=== PATIENT | female | born 1935 ===

== ENCOUNTER 2016-10-12 10:56 | Inpatient (IN) | payer MEDICARE, OTHER ==
[2016-10-12 11:09] VITALS: BMI 21.4
[2016-10-12 11:31] VITALS: O2SAT 99
[2016-10-12 12:29] LABS: BASO # 0.1 K/uL (0.0-0.2); BASO % 1.1 % (0.0-2.0); EOS % 0.3 % (0.0-4.0); HEMATOCRIT 35.2 % (34.0-47.0); LYMPH # 1.3 K/uL (1.0-4.3); LYMPH % 22.2 % (20.0-40.0); MEAN CELL VOLUME 97.1 fl (81.0-99.0); MEAN CORPUSCULAR HEMOGLOBIN 32.5 pg (27.0-31.0); MEAN CORPUSCULAR HGB CONC 33.5 g/dL (33.0-37.0); MEAN PLATELET VOLUME 8.3 fl (7.2-11.7); MONO # 0.4 K/uL (0.0-0.8); MONO % 6.8 % (0.0-10.0); NEUT # 4.2 K/uL (1.8-7.0); NEUT % 69.6 % (50.0-75.0); RED CELL DISTRIBUTION WIDTH 13.9 % (11.5-14.5)
[2016-10-12 12:40] LABS: ALB/GLOB RATIO 1.4 (1.0-2.1); ALCOHOL SERUM < 10 mg/dl (0-10); ALKALINE PHOSPHATASE 92 U/L (38-126); ALT/SGPT 22 U/L (9-52); AST/SGOT 21 U/L (14-36); BILIRUBIN,TOTAL 0.6 mg/dl (0.2-1.3); BLOOD UREA NITROGEN 18 mg/dl (7-17); CALCIUM 9.4 mg/dL (8.4-10.2); CARBON DIOXIDE 24 mmol/L (22-30); CHLORIDE 108 mmol/L (98-107); GFR AFRICAN-AMERICAN > 60; GLUCOSE,RANDOM 128 mg/dL (65-105); POTASSIUM 3.6 MMOL/L (3.6-5.0); SODIUM 144 mmol/l (132-148); TOTAL PROTEIN 7.1 G/DL (6.3-8.2)
--- NOTE | 2016-10-12 12:40 | ED PDOC ---
HPI: General Adult Time Seen by Provider: 10/12/16 11:04 Chief Complaint (Nursing): Altered Mental Status History Per: Patient Additional Complaint(s): Pt. brought in by EMS. As per pt.'s public guardian, Sharon, today she attempted to go into pt.'s home to check on her but pt. became very combative therefore mobile crisis was called. As per Sharon this behavior is consistent with her previous visits. Pt. is very defensive but does answer questions appropriately. Offers no complaints. States she is upset that she has to be in the hospital and she does not understand why she has to be here and why people have to go into her house. Past Medical History Reviewed: Historical Data, Nursing Documentation, Vital Signs Vital Signs: Last Vital Signs Temp 98 F 10/12/16 11:30 Pulse 75 10/12/16 11:30 Resp 20 10/12/16 11:30 BP 145/75 10/12/16 11:30 Pulse Ox 99 10/12/16 15:37 - Medical History PMH: Denies: Chronic Kidney Disease - Family History Family History: States: No Known Family Hx - Living Arrangements Living Arrangements: Alone - Home Medications Home Medications: Ambulatory Orders Medication Instructions Recorded No Known Home Med 10/12/16 - Allergies Allergies/Adverse Reactions: Allergies Allergy/AdvReac Type Severity Reaction Status Date / Time No Known Allergies Allergy Verified 10/12/16 11:51 Review of Systems ROS Statement: Except As Marked, All Systems Reviewed And Found Negative Physical Exam - Reviewed Nursing Documentation Reviewed: Yes Vital Signs Reviewed: Yes - Physical Exam Appears: Positive for: Well, Non-toxic, No Acute Distress Head Exam: Positive for: ATRAUMATIC, NORMAL INSPECTION, NORMOCEPHALIC Skin: Positive for: Normal Color, Warm, DRY Eye Exam: Positive for: EOMI, Normal appearance, PERRL ENT: Positive for: Normal ENT Inspection Neck: Positive for: Normal, Painless ROM Cardiovascular/Chest: Positive for: Regular Rate, Rhythm Respiratory: Positive for: CNT, Normal Breath Sounds Gastrointestinal/Abdominal: Positive for: Normal Exam, Bowel Sounds, Soft Back: Positive for: Normal Inspection Extremity: Positive for: Normal ROM Neurologic/Psych: Positive for: Alert, Oriented, Mood/Affect (seems agitated but is easily consolable), Gait (steady, unassisted). Negative for: Aphasia, Facial Droop - Laboratory Results Result Diagrams: 10/12/16 12:20 10/12/16 12:20 - ECG ECG: Positive for: Interpreted By Me ECG Rhythm: Positive for: Sinus Rhythm. Negative for: ST/T Changes Rate: 87 O2 Sat by Pulse Oximetry: 99 ED OBSERVATION Discharge: Yes Date of observation admission: 10/12/16 Time of observation admission: 11:53 - Observation admission statement Patient is being placed in observation because:: crisis eval - Progress Note Progress Note: 10/12/16 13:32 Pt. evaluated by Norma electric utility lineworker, who spoke with Dr. Logan and pt's guardian (Sharon) and arrangements made for admission. 10/12/16 15:32 Pt. is very pleasant and agreeable to plan. CT head w/o contrast: Age-related neuro degenerative changes are identified without acute intracranial findings as discussed above. 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 Follow-up MRI or CT may be performed if clinically warranted. CXR: NAD Disposition - Clinical Impression Clinical Impression: Major neurocognitive disorder - Patient ED Disposition Is Patient to be Admitted: Yes - Disposition Disposition Time: 15:37 Condition: STABLE
--- NOTE | 2016-10-12 13:17 | CT ---
PROCEDURE: CT HEAD WITHOUT CONTRAST. HISTORY: AMS COMPARISON: None available. TECHNIQUE: Axial computed tomography images were obtained through the head/brain without intravenous contrast. Radiation dose: Total exam DLP = 824 mGy-cm. This CT exam was performed using one or more of the following dose reduction techniques: Automated exposure control, adjustment of the mA and/or kV according to patient size, and/or use of iterative reconstruction technique. FINDINGS: HEMORRHAGE: No intracranial hemorrhage. BRAIN: There are probable bilateral external capsule chronic lacune or infarcts identified. Diffuse cerebral atrophy chronic microangiopathy appear mild, manifest by expanded ventricular sulcal and cisternal spaces and periventricular/centrum semiovale and subcortical white matter lucency. No mass effects identified and there is no extra-axial fluid collection appreciated. Midline brain and appears diffusely unremarkable including the craniocervical junction and corpus callosum. VENTRICLES: Unremarkable. No hydrocephalus. CALVARIUM: Unremarkable. PARANASAL SINUSES: Unremarkable as visualized. No significant inflammatory changes. MASTOID AIR CELLS: Unremarkable as visualized. No inflammatory changes. OTHER FINDINGS: None. IMPRESSION: Age-related neuro degenerative changes are identified without acute intracranial findings as discussed above. 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 Follow-up MRI or CT may be performed if clinically warranted.
[2016-10-12 15:16] LABS: URINE BILIRUBIN NEGATIVE (NEGATIVE); URINE BLOOD SMALL (NEGATIVE); URINE COLOR YELLOW (YELLOW); URINE GLUCOSE (UA) NEG (Normal); URINE KETONE NEGATIVE (NEGATIVE); URINE LEUKOCYTE ESTERASE NEG Leu/uL (Negative); URINE PROTEIN NEGATIVE (NEGATIVE); URINE UROBILINOGEN 0.2-1.0 mg/dL (0.2-1.0); WBC URINE 1 /hpf (0-5)
[2016-10-12 15:17] LABS: RBC URINE 8 /hpf (0-3)
--- NOTE | 2016-10-12 16:53 | RAD ---
HISTORY: clearance COMPARISON: No prior. FINDINGS: LUNGS: No active pulmonary disease. PLEURA: No significant pleural effusion identified, no pneumothorax apparent. CARDIOVASCULAR: Cardiac silhouette appears somewhat prominent which may be a function of technical magnification although intrinsic cardiomegaly is not excluded. Clinically correlate further. No pulmonary vascular derangement identified. OSSEOUS STRUCTURES: No significant abnormalities. VISUALIZED UPPER ABDOMEN: Surgical clips in the right upper quadrant suggest prior cholecystectomy. Clinically correlate. OTHER FINDINGS: None. IMPRESSION: No acute infiltrate or pleural effusion. Prominent cardiac silhouette. No pulmonary vascular derangement.
--- NOTE | 2016-10-12 21:32 | CARD ---
APPROVED REPORT EKG Measurement Heart [id number] <Conclusion> Normal sinus rhythm Minimal voltage criteria for LVH, may be normal variant Septal infarct, age undetermined Abnormal ECG
[2016-10-13] MEDS ORDERED: Magnesium Hydroxide Susp 30 ml UD PO PRN (00:16)
[2016-10-13] MEDS ORDERED: Bismuth Subsalicylate 262 mg/15 ml Sus (240 ml) PO PRN (00:16)
[2016-10-13] MEDS ORDERED: Alum-Mag Hydrox-Simethicone Susp (30 mL) PO PRN (00:16)
--- NOTE | 2016-10-13 03:09 | PCM.BM ---
<Christina Barrientos - Last Filed: 10/13/16 03:07> Treatment Plan Problems - Problems identified on initial assessmt altered thought process Date Initiated: 10/13/16 Time Initiated: 03:08 Assessment reference: NA Status: Active Treatment assets and liabiliti Patient Assests: other Patient Liabilities: live alone, physical pain, medical problems, imparied memory - Milieu Protocol Maintain good personal hygiene: daily Encourage regular showers, daily Remind patient to perform daily oral care, daily Assist patient to perform ADL's Maintain personal safety: every shift Educate patient to report safety concerns to staff, every shift Monitor environment for contraband/sharps Medication safety: Monitor for expected outcome, potential side effects: every shift, Assess barriers to learning: every shift, Assess readiness for medication education: every shift <Lilly Aguilera - Last Filed: 10/13/16 11:36> - Diagnosis (1) Dementia with behavioral disturbance Status: Acute Interventions: Medication management, Individual and group therapy, Psychoeducation, Disposition planning with legal guardian 10/13/16 11:36 <Kelly Mata - Last Filed: 10/15/16 10:17> Family Contact Family involvement: Family/SO is involved - Outside Agency Office of the Public Guardian, [facility] involvment: Following patient during stay, Information-sharing Agency contact name: [employer] TechnicianSharon Agency contact number: [phone] Discharge/Continuing Care - Education Needs Education Needs: Family Medication, Family Diagnosis/Disease Process, Family Coping Skills, Family Placement options, Family Community resources, Family Activities of Daily Living, Family Uses of Medical Equipment, Family Health Practices/Safety, Family Personal Hygiene/Grooming, Family Aftercare Safety Plan , Patient Medication, Patient Diagnosis/Disease Process, Patient Coping Skills, Patient Placement options, Patient Community resources, Patient Activities of Daily Living, Patient Uses of Medical Equipment, Patient Health Practices/Safety , Patient Personal Hygiene/Grooming, Patient Aftercare Safety Plan - Discharge Discharge Criteria: Tolerates medication w/o severe side effects, Free of paranoid thoughts, Free of agitation, Normal sleep pattern, Reduction of target symptoms Discharge to:: [facility] - Additional Comments 10/15/16 10:15 Pt's progress and bx discussed in team . Pt's medications reviewed. Pt's medical and social issues discussed. Pt currently on a 1:1 for safety precautions and wandering bxs'. Pt remains confused and disoriented. - Treatment Team Participation Discussed with Family/SO: Yes (Tx plan discussed wt [facility] renal case manager, Sharon Lin via telephone) Was Patient/Family/SO present at Treatment Team Meeting: No
[2016-10-13 08:00] LABS: ALB/GLOB RATIO 1.2 (1.0-2.1); ALKALINE PHOSPHATASE 93 U/L (38-126); ALT/SGPT 21 U/L (9-52); AST/SGOT 26 U/L (14-36); BILIRUBIN,TOTAL 0.8 mg/dl (0.2-1.3); BLOOD UREA NITROGEN 11 mg/dl (7-17); CALCIUM 9.2 mg/dL (8.4-10.2); CARBON DIOXIDE 24 mmol/L (22-30); CHLORIDE 107 mmol/L (98-107); CHOLESTEROL 237 mg/dL (0-199); GFR AFRICAN-AMERICAN > 60; GLUCOSE,RANDOM 74 mg/dL (65-105); POTASSIUM 3.7 MMOL/L (3.6-5.0); SODIUM 141 mmol/l (132-148); TOTAL PROTEIN 6.9 G/DL (6.3-8.2)
[2016-10-13 08:29] LABS: THYROID STIMULATING HORMONE 2.64 mIU/ML (0.46-4.68)
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
--- NOTE | 2016-10-13 12:04 | CP.PCM.CON ---
History of Present Illness - History of Present Illness History of Present Illness: Reason for Consult: per hospital protocol HPI 81 year female with state appointed guardian is admitted to [facility] for possible dementia. Patient is often found wandering the streets. Unknown past medical history, no known meds. ROS: per HPI, 12 systems reviewed and negative PMH: denies PSH: denies FH: denies SH: denies tobacco, ETOH, IVDU Meds: as below Allergies: NKDA Vitals: reviewed and currently stable Exam: GEN: WDWN, alert, cooperative HEENT: NCAT, PERRL, EOMI NECK: supple, no JVD, no lymphadenopathy CARDIAC: +S1S2 RRR LUNG: CTAB No WRR ABD: SOFT NT ND BSX4 NO MASSES NO HSM EXT: +pedal pulses, equal strength NEURO: AAOx2 SKIN warm, dry PSYCH normal mood, normal affect Labs: 10/12/16 12:20 10/13/16 07:22 Assessment and Plan: 81 year female with state appointed guardian is admitted to [facility] for possible dementia. Patient is often found wandering the streets. Unknown past medical history, no known meds. Psychiatric Issue management per psychiatry team Past Patient History - Past Social History Smoking Status: Never Smoked - CARDIAC Hx Cardiac Disorders: No Hx Hypertension: No - PULMONARY Hx Tuberculosis: No - NEUROLOGICAL HX Cerebrovascular Accident: No Hx Dementia: Yes Hx Seizures: No - HEENT Hx HEENT Problems: No - RENAL Hx Chronic Kidney Disease: No - ENDOCRINE/METABOLIC Hx Endocrine Disorders: No - HEMATOLOGICAL/ONCOLOGICAL Hx Cancer: No Hx Human Immunodeficiency Virus (HIV): No - INTEGUMENTARY Hx Dermatological Problems: No - MUSCULOSKELETAL/RHEUMATOLOGICAL Hx Falls: No Hx Unsteady Gait: Yes - GASTROINTESTINAL Hx Gastrointestinal Disorders: No - GENITOURINARY/GYNECOLOGICAL Hx Sexually Transmitted Disorders: No - PSYCHIATRIC Hx Substance Use: No - SURGICAL HISTORY Hx Surgeries: Yes Hx Joint Replacement: Yes (right hip) - ANESTHESIA Hx Anesthesia: No Meds Allergies/Adverse Reactions: Allergies Allergy/AdvReac Type Severity Reaction Status Date / Time No Known Allergies Allergy Verified 10/12/16 11:51 - Medications Medications: Current Medications Acetaminophen (Tylenol 325mg Tab) 650 mg PO Q4 PRN PRN Reason: Pain, moderate (4-7) Al Hydrox/Mg Hydrox/Simethicone (Maalox Plus 30 Ml) 30 ml PO Q4 PRN PRN Reason: Dyspepsia Bismuth Subsalicylate (Pepto-Bismol) 524 mg PO Q4 PRN PRN Reason: Diarrhea Lorazepam (Ativan) 0.5 mg PO HS PRN PRN Reason: Insomnia Stop: 10/27/16 00:17 Lorazepam (Ativan) 0.5 mg PO Q6 PRN PRN Reason: Anixety/Agitation Stop: 10/27/16 00:17 Magnesium Hydroxide (Milk Of Magnesia) 30 ml PO HS PRN PRN Reason: Constipation Risperidone (Risperdal Tab) 0.5 mg PO DAILY@1700 GODFREY Results - Vital Signs Recent Vital Signs: Last Vital Signs Temp 98.1 F 10/13/16 05:50 Pulse 78 10/13/16 05:50 Resp 19 10/13/16 05:50 BP 155/60 H 10/13/16 05:50 Pulse Ox 99 10/12/16 15:43 - Labs Result Diagrams: 10/12/16 12:20 10/13/16 07:22 Labs: Laboratory Results - last 24 hr 10/13/16 10/13/16 10/13/16 07:22 07:22 07:22 Sodium 141 Potassium 3.7 Chloride 107 Carbon Dioxide 24 Anion Gap 14 BUN 11 Creatinine 0.6 L Est GFR ( Amer) > 60 Est GFR (Non-Af Amer) > 60 Random Glucose 74 Hemoglobin A1c 5.4 Calcium 9.2 Ferritin 112.0 Total Bilirubin 0.8 AST 26 ALT 21 Alkaline Phosphatase 93 Total Protein 6.9 Albumin 3.8 Globulin 3.1 Albumin/Globulin Ratio 1.2 Triglycerides 108 Cholesterol 237 H LDL Cholesterol Direct 166 H HDL Cholesterol 45 Vitamin B12 < 159 L Free T4 1.00 Thyroxine (T4) 10.0 TSH 3rd Generation 2.64
[2016-10-13 12:37] LABS: FOLATE 13.9 ng/mL
[2016-10-13] MEDS ORDERED: Pneumococcal 23-Valent Vaccine IM ONE (13:55)
[2016-10-13] MEDS ORDERED: Divalproex 125 mg DR (BID formulation) PO SCH (17:00)
--- NOTE | 2016-10-14 20:17 | PCM.PYCHPN ---
Psychiatric Progress Note - Psychiatric Progress Note Patient seen today, length of contact: chart reviewed case discussed with team Patient Chief Complaint: confusion, get up unassisted/risk for falls /attempting to elope/aggressive/ behavior changes Problems Identified/Issues Discussed: alteration in cognition alteration in self care alteration in safety alteration in b12 levels Medical Problems: per chart decreased b12 levels, urine was slight cloudy/rbc 8 Diagnostic Results: per psychiatry per medicine per nursing per social work DSM 5 Symptoms Update: alteration in cognition, behavior changes, elopement risk, requires total care Medication Change: Yes (start mvi one tab day, b12 1000mcg per day) Medical Record Reviewed: Yes Consults ordered or reviewed: pt being followed by hospitalist, will have nutrition re consult pt Mental Status Examination - Cognitive Function Orientation: Person, Place ("Hospital") Attention: Poor Concentration: Poor Association: Loose Fund of Knowledge: Poor Decription of patient's judgement and insights: poor - Mood Mood: Neutral - Affect Affect: Constricted (Irritable) - Speech Speech: Soft - Language Additional comments: speaks armenian - Formal Thought Process Formal Thought Process: Paranoia, Loosening of associations Psychotic Thoughts and Behaviors: ?paranoia/staff - Homicidal Ideation Homicidal Ideation: No Goal/Treatment Plan - Goal/Treatment Plan Need for Continued Stay: Remain at risks for inpatient hospitalization, Discharge may exacerbated symptoms, Failed transitioning, Severe functional impairment Progress Toward Problem(s) and Goals/Treatment Plan: inpt/milieu adjust meds per status continue 1 to 1 for safety start one tab mvi daily with b12 1000mcg per day/tab po reconsult nutrition repeat urinalysis-pt with partial cloudy urine ?uti-?changes in mentation pt requires total care-team has been in contact (per note) with legal guardian who has given permission to adjust meds (psych/medicine ) as necessary discharge planning in progress
--- NOTE | 2016-10-15 08:38 | PCM.PYCHPN ---
Psychiatric Progress Note - Psychiatric Progress Note Patient seen today, length of contact: Patient evaluated, case discussed with team, chart reviewed, 35 min Patient Chief Complaint: "I'm okay" Problems Identified/Issues Discussed: Patient continues to be disoriented to situation/time. She knows she is in a hospital. Yesterday she has periods of agitation. She continues to seem to be paranoid at times. She has been observed to be eating well. Medication Change: Yes (Increase Risperdal to 0.5 mg PO BID) Medical Record Reviewed: Yes Mental Status Examination - Cognitive Function Orientation: Person, Place ("Hospital") Memory: Impaired Attention: Poor Concentration: Poor Association: Loose Fund of Knowledge: Poor Decription of patient's judgement and insights: Chronic poor I/J due to cognitive impairment - Mood Mood: Neutral - Affect Affect: Constricted (Irritable) - Speech Speech: Soft - Formal Thought Process Formal Thought Process: Paranoia, Loosening of associations Psychotic Thoughts and Behaviors: +Paranoia - Suicidal Ideation Suicidal Ideation: No - Homicidal Ideation Homicidal Ideation: No Goal/Treatment Plan - Goal/Treatment Plan Need for Continued Stay: Remain at risks for inpatient hospitalization, Discharge may exacerbated symptoms, Failed transitioning, Severe functional impairment Progress Toward Problem(s) and Goals/Treatment Plan: Dementia w/ behavioral disturbance, Psychosis unspecified; patient is in need of continued hospitalization for treatment and safety -Case discussed w/ legal guardian, Sharon Lin -Medicine consult appreciated -Increase Risperdal M-tab to 0.5 mg PO BID -Individual and group therapy -Dietary consult- patient likely has had poor nutrition/ ability to care for self prior to admission -1:1 for safety -Disposition planning Estimated Date of D/C: 10/23/16 - Smoking Cessation Smoking Cessation Initiated: No Reason for not providing: Not indicated
[2016-10-15 08:45] LABS: RBC URINE 2 /hpf (0-3); URINE BACTERIA RARE (<OCC); URINE BILIRUBIN NEGATIVE (NEGATIVE); URINE BLOOD NEGATIVE (NEGATIVE); URINE COLOR YELLOW (YELLOW); URINE GLUCOSE (UA) NEG (Normal); URINE KETONE NEGATIVE (NEGATIVE); URINE LEUKOCYTE ESTERASE NEG Leu/uL (Negative); URINE PROTEIN NEGATIVE (NEGATIVE); URINE UROBILINOGEN 0.2-1.0 mg/dL (0.2-1.0); WBC URINE 2 /hpf (0-5)
[2016-10-15] MEDS: Multivitamin With Minerals Tab PO SCH (09:30)
[2016-10-15] MEDS: Risperidone M tab 0.5MG PO SCH ×2 (11:32→16:23)
[2016-10-16] MEDS: Multivitamin With Minerals Tab PO SCH ×2 (08:25→08:26)
[2016-10-16] MEDS: Risperidone M tab 0.5MG PO SCH ×2 (08:25→17:15)
--- NOTE | 2016-10-16 09:22 | PCM.PYCHPN ---
Psychiatric Progress Note - Psychiatric Progress Note Patient seen today, length of contact: Patient evaluated, case discussed with team, chart reviewed, 35 min Patient Chief Complaint: "I'm okay" Problems Identified/Issues Discussed: Patient has been calm and cooperative. She continues to be guarded and suspicious and will not give any information about her personal life. Patient continues to be disoriented to situation/time. She knows she is in a hospital. She has been eating well. Medication Change: No Medical Record Reviewed: Yes Mental Status Examination - Cognitive Function Orientation: Person, Place ("Hospital") Memory: Impaired Attention: Poor Concentration: Poor Association: Loose Fund of Knowledge: Poor Decription of patient's judgement and insights: Chronic poor I/J due to cognitive impairment - Mood Mood: Neutral - Affect Affect: Constricted (Irritable) - Speech Speech: Soft - Formal Thought Process Formal Thought Process: Paranoia, Loosening of associations Psychotic Thoughts and Behaviors: +Paranoia - Suicidal Ideation Suicidal Ideation: No - Homicidal Ideation Homicidal Ideation: No Goal/Treatment Plan - Goal/Treatment Plan Need for Continued Stay: Remain at risks for inpatient hospitalization, Discharge may exacerbated symptoms, Failed transitioning, Severe functional impairment Progress Toward Problem(s) and Goals/Treatment Plan: Dementia w/ behavioral disturbance, Psychosis unspecified; patient is in need of continued hospitalization for treatment and safety -Case discussed w/ legal guardian, Sharon Lin -Medicine consult appreciated -Continue Risperdal M-tab 0.5 mg PO BID -Individual and group therapy -Dietary consult appreciated -1:1 for safety; will consider discontinuing today -Disposition planning Estimated Date of D/C: 10/23/16 - Smoking Cessation Smoking Cessation Initiated: No Reason for not providing: Not indicated
[2016-10-17] MEDS: Risperidone M tab 0.5MG PO SCH ×2 (08:10→16:25)
[2016-10-17] MEDS: Multivitamin With Minerals Tab PO SCH (08:11)
--- NOTE | 2016-10-17 12:30 | PCM.PYCHPN ---
Psychiatric Progress Note - Psychiatric Progress Note Patient seen today, length of contact: discussed with team Patient Chief Complaint: no c/o Problems Identified/Issues Discussed: no c./o medication side effects. no behavioral disturbance noted by staff. pt sitting in day room eating when seen by this play writer and currently calm. Medication Change: No Medical Record Reviewed: Yes Mental Status Examination - Cognitive Function Orientation: Person, Place ("Hospital") Memory: Impaired Attention: Poor Concentration: Poor Association: Loose Fund of Knowledge: Poor - Mood Mood: Neutral - Affect Affect: Constricted (Irritable) - Speech Speech: Soft - Formal Thought Process Formal Thought Process: Paranoia, Loosening of associations - Suicidal Ideation Suicidal Ideation: No - Homicidal Ideation Homicidal Ideation: No Goal/Treatment Plan - Goal/Treatment Plan Need for Continued Stay: Remain at risks for inpatient hospitalization, Discharge may exacerbated symptoms, Failed transitioning, Severe functional impairment Progress Toward Problem(s) and Goals/Treatment Plan: dementia with behavioral disturbance will continue risperidone at current dose per primary team Estimated Date of D/C: 10/23/16
[2016-10-18] MEDS: Multivitamin With Minerals Tab PO SCH (09:01)
[2016-10-18] MEDS: Risperidone M tab 0.5MG PO SCH ×2 (09:01→16:51)
--- NOTE | 2016-10-18 12:29 | PCM.PYCHPN ---
Psychiatric Progress Note - Psychiatric Progress Note Patient seen today, length of contact: discussed with team Patient Chief Complaint: why can't i go today? Problems Identified/Issues Discussed: no c./o medication side effects. no behavioral disturbance noted by staff. pt sitting in hallway, asking nurse if she can go home. Medication Change: No Medical Record Reviewed: Yes Mental Status Examination - Cognitive Function Orientation: Person, Place ("Hospital") Memory: Impaired Attention: Poor Concentration: Poor Association: Loose Fund of Knowledge: Poor - Mood Mood: Neutral - Affect Affect: Constricted (Irritable) - Speech Speech: Soft - Formal Thought Process Formal Thought Process: Paranoia, Loosening of associations - Suicidal Ideation Suicidal Ideation: No - Homicidal Ideation Homicidal Ideation: No Goal/Treatment Plan - Goal/Treatment Plan Need for Continued Stay: Remain at risks for inpatient hospitalization, Discharge may exacerbated symptoms, Failed transitioning, Severe functional impairment Progress Toward Problem(s) and Goals/Treatment Plan: dementia with behavioral disturbance will continue risperidone at current dose per primary team Estimated Date of D/C: 10/23/16
[2016-10-19] MEDS: Risperidone M tab 0.5MG PO SCH ×2 (08:42→17:03)
[2016-10-19] MEDS: Multivitamin With Minerals Tab PO SCH (08:43)
--- NOTE | 2016-10-19 08:51 | PCM.PYCHPN ---
Psychiatric Progress Note - Psychiatric Progress Note Patient seen today, length of contact: Patient evaluated, case discussed with team, chart reviewed Patient Chief Complaint: "I'm okay" Problems Identified/Issues Discussed: Patient is irritable w/ law writer, not agreeable to talking. Patient has had periods of irritability and yesterday was very paranoid that her roommate wanted to steal her belongings. Patient is guarded and will not give information about her life. Patient continues to be disoriented to situation/ time. She knows she is in a hospital. She has been eating well. Medication Change: Yes (Start Depakote 125 mg PO BID) Medical Record Reviewed: Yes Mental Status Examination - Cognitive Function Orientation: Person, Place ("Hospital") Memory: Impaired Attention: Poor Concentration: Poor Association: Loose Fund of Knowledge: Poor Decription of patient's judgement and insights: Poor I/J - Mood Mood: Neutral - Affect Affect: Constricted (Irritable) - Speech Speech: Soft - Formal Thought Process Formal Thought Process: Paranoia, Loosening of associations Psychotic Thoughts and Behaviors: +Paranoia - Suicidal Ideation Suicidal Ideation: No - Homicidal Ideation Homicidal Ideation: No Goal/Treatment Plan - Goal/Treatment Plan Need for Continued Stay: Remain at risks for inpatient hospitalization, Discharge may exacerbated symptoms, Failed transitioning, Severe functional impairment Progress Toward Problem(s) and Goals/Treatment Plan: Dementia w/ behavioral disturbance, Psychosis unspecified, Mood Disorder unspecified; patient is in need of continued hospitalization for treatment and safety -Case discussed w/ legal guardian, Sharon Lin -Medicine consult appreciated -Continue Risperdal M-tab 0.5 mg PO BID -Start Depakote 125 mg PO BID -Individual and group therapy -Disposition planning Estimated Date of D/C: 10/23/16 - Smoking Cessation Smoking Cessation Initiated: No Reason for not providing: Not indicated
[2016-10-19] MEDS: Divalproex 125 mg Sprinkle Capsule PO SCH (17:03)
[2016-10-20] MEDS: Multivitamin With Minerals Tab PO SCH (08:21)
[2016-10-20] MEDS: Risperidone M tab 0.5MG PO SCH (08:22)
[2016-10-20] MEDS: Divalproex 125 mg Sprinkle Capsule PO SCH ×2 (08:23→16:56)
--- NOTE | 2016-10-20 08:37 | PCM.PYCHPN ---
Psychiatric Progress Note - Psychiatric Progress Note Patient seen today, length of contact: Patient evaluated, case discussed with team, chart reviewed, 35 min Patient Chief Complaint: "I'm okay" Problems Identified/Issues Discussed: Patient is irritable w/ policy writer and other staff members. She is now asking for her son and is paranoid that staff is trying to harm her or her son. She has poor insight into her paranoia. She is also paranoid towards her roommate. Patient is guarded and will not give information about her life. Patient continues to be disoriented to situation/time. She knows she is in a hospital. She has been eating well. Medication Change: Yes (Increase Risperdal to 1 mg PO Daily@1700) Medical Record Reviewed: Yes Mental Status Examination - Cognitive Function Orientation: Person, Place ("Hospital") Memory: Impaired Attention: Poor Concentration: Poor Association: Loose Fund of Knowledge: Poor Decription of patient's judgement and insights: Poor I/J - Mood Mood: Neutral - Affect Affect: Constricted (Irritable) - Speech Speech: Soft - Formal Thought Process Formal Thought Process: Delusions, Paranoia, Loosening of associations Psychotic Thoughts and Behaviors: +Paranoia - Suicidal Ideation Suicidal Ideation: No - Homicidal Ideation Homicidal Ideation: No Goal/Treatment Plan - Goal/Treatment Plan Need for Continued Stay: Remain at risks for inpatient hospitalization, Discharge may exacerbated symptoms, Failed transitioning, Severe functional impairment Progress Toward Problem(s) and Goals/Treatment Plan: Dementia w/ behavioral disturbance, Psychosis unspecified, Mood Disorder unspecified; patient is in need of continued hospitalization for treatment and safety -Case discussed w/ legal guardian, Sharon Lin -Medicine consult appreciated -Increase Risperdal M-tab 0.5 mg PO Daily/ 1 mg PO Daily@1700 -Continue Depakote 125 mg PO BID -Individual and group therapy -Disposition planning Estimated Date of D/C: 10/26/16 - Smoking Cessation Smoking Cessation Initiated: No Reason for not providing: Not indicated
[2016-10-20] MEDS: Risperidone M tab 1 MG PO SCH (16:57)
[2016-10-21 07:50] LABS: CHOLESTEROL 208 mg/dL (0-199)
[2016-10-21] MEDS: Divalproex 125 mg Sprinkle Capsule PO SCH ×2 (08:37→16:07)
[2016-10-21] MEDS: Risperidone M tab 0.5MG PO SCH (08:37)
[2016-10-21] MEDS: Multivitamin With Minerals Tab PO SCH (08:37)
--- NOTE | 2016-10-21 08:38 | PCM.PYCHPN ---
Psychiatric Progress Note - Psychiatric Progress Note Patient seen today, length of contact: Patient evaluated, case discussed with team, chart reviewed, 35 min Patient Chief Complaint: "I'm okay" Problems Identified/Issues Discussed: Patient continues to have periods of irritability, but overall is calmer. She continues to have paranoia and is guarded. She is compliant with medications and denies adverse effects. No episodes of aggression or agitation. Patient continues to be disoriented to situation/time. She knows she is in a hospital. She has been eating well. Medication Change: No Medical Record Reviewed: Yes Consults ordered or reviewed: Medicine consult, Dietary consult, Psychology consult pending Mental Status Examination - Cognitive Function Orientation: Person, Place ("Hospital") Memory: Impaired Attention: Poor Concentration: Poor Association: Loose Fund of Knowledge: Poor Decription of patient's judgement and insights: Poor I/J - Mood Mood: Neutral - Affect Affect: Constricted (Irritable) - Speech Speech: Soft - Formal Thought Process Formal Thought Process: Delusions, Paranoia, Loosening of associations Psychotic Thoughts and Behaviors: +Paranoia - Suicidal Ideation Suicidal Ideation: No - Homicidal Ideation Homicidal Ideation: No Goal/Treatment Plan - Goal/Treatment Plan Need for Continued Stay: Remain at risks for inpatient hospitalization, Discharge may exacerbated symptoms, Failed transitioning, Severe functional impairment Progress Toward Problem(s) and Goals/Treatment Plan: Dementia w/ behavioral disturbance, Psychosis unspecified, Mood Disorder unspecified; patient is in need of continued hospitalization for treatment and safety -Case discussed w/ legal guardian, Sharon Lin -Medicine consult appreciated -Continue Risperdal M-tab 0.5 mg PO Daily/ 1 mg PO Daily@1700 -Continue Depakote 125 mg PO BID, order VPA level on 10/23/16 -Individual and group therapy -Disposition planning Estimated Date of D/C: 10/26/16
--- NOTE | 2016-10-21 09:34 | CP.PCM.PN ---
Subjective - Date & Time of Evaluation Date of Evaluation: 10/21/16 Time of Evaluation: 09:32 - Subjective Subjective: Internal med ff up : Hyperlipidemia - start Lipitor 20 mg daily - low fat/Tosin diet B12 Deficiency - Cyanocobalamin 1000mcg IM daily x 3 days - cont PO B12 Objective - Vital Signs/Intake and Output Vital Signs (last 24 hours): Temp Pulse Resp BP Pulse Ox 97.5 F L 68 19 110/62 99 10/21/16 05:45 10/21/16 08:38 10/21/16 05:45 10/21/16 08:38 10/12/16 15:43 - Medications Medications: Current Medications Acetaminophen (Tylenol 325mg Tab) 650 mg PO Q4 PRN PRN Reason: Pain, moderate (4-7) Last Admin: 10/19/16 20:34 Dose: 650 mg Al Hydrox/Mg Hydrox/Simethicone (Maalox Plus 30 Ml) 30 ml PO Q4 PRN PRN Reason: Dyspepsia Atorvastatin Calcium (Lipitor) 20 mg PO DAILY [facility] Bismuth Subsalicylate (Pepto-Bismol) 524 mg PO Q4 PRN PRN Reason: Diarrhea Cyanocobalamin (Vitamin B12 1000 Mcg Tab) 1,000 mcg PO DAILY [facility] Last Admin: 10/21/16 08:38 Dose: 1,000 mcg Cyanocobalamin (Vitamin B12 1000 Mcg/Ml Inj) 1,000 mcg IM DAILY [facility] Stop: 10/23/16 09:01 Divalproex Sodium (Depakote Sprinkles) 125 mg PO BID [facility] Last Admin: 10/21/16 08:37 Dose: 125 mg Lisinopril (Zestril) 5 mg PO DAILY [facility] Last Admin: 10/21/16 08:38 Dose: 5 mg Lorazepam (Ativan) 0.5 mg PO HS PRN PRN Reason: Insomnia Stop: 10/27/16 00:17 Last Admin: 10/20/16 21:39 Dose: 0.5 mg Lorazepam (Ativan) 0.5 mg PO Q6 PRN PRN Reason: Anixety/Agitation Stop: 10/27/16 00:17 Last Admin: 10/20/16 08:20 Dose: 0.5 mg Lorazepam (Ativan) 0.5 mg IM Q6 PRN PRN Reason: Anxiety Magnesium Hydroxide (Milk Of Magnesia) 30 ml PO HS PRN PRN Reason: Constipation Multivitamins/Minerals (Therapeutic-M Tab) 1 tab PO DAILY [facility] Last Admin: 10/21/16 08:37 Dose: 1 tab Risperidone (Risperdal M-Tab) 0.5 mg PO DAILY [facility] Last Admin: 10/21/16 08:37 Dose: 0.5 mg Risperidone (Risperdal M-Tab) 1 mg PO DAILY@1700 [facility] Last Admin: 10/20/16 16:57 Dose: 1 mg - Labs Labs: 10/13/16 07:22
--- NOTE | 2016-10-21 10:17 | PCM.BM ---
Treatment Plan Problems - Problems identified on initial assessmt altered thought process Date Initiated: 10/13/16 Time Initiated: 03:08 Assessment reference: NA Status: Active Treatment assets and liabiliti Patient Assests: good support system, negotiates basic needs, financial stabiity , other Patient Liabilities: live alone, physical pain, medical problems, imparied memory - Milieu Protocol Maintain good personal hygiene: daily Encourage regular showers, daily Remind patient to perform daily oral care, daily Assist patient to perform ADL's Maintain personal safety: every shift Educate patient to report safety concerns to staff, every shift Monitor environment for contraband/sharps Medication safety: Monitor for expected outcome, potential side effects: every shift, Assess barriers to learning: every shift, Assess readiness for medication education: every shift Milieu Narrative: Dementia w/ behavioral disturbance, Psychosis unspecified, Mood Disorder unspecified; patient is in need of continued hospitalization for treatment and safety -Case discussed w/ legal guardianSharon -Medicine consult appreciated -Continue Risperdal M-tab 0.5 mg PO Daily/ 1 mg PO Daily@1700 -Continue Depakote 125 mg PO BID, order VPA level on 10/23/16 -Individual and group therapy -Disposition planning Family Contact Family involvement: Family/SO is involved - Outside Agency [facility] involvment: Following patient during stay, Information-sharing Agency contact name: Tile Machine Operator Sharon Delia Agency contact number: [phone] Discharge/Continuing Care - Education Needs Education Needs: Family Medication, Family Diagnosis/Disease Process, Family Coping Skills, Family Placement options, Family Community resources, Family Activities of Daily Living, Family Uses of Medical Equipment, Family Health Practices/Safety, Family Personal Hygiene/Grooming, Family Aftercare Safety Plan , Patient Medication, Patient Diagnosis/Disease Process, Patient Coping Skills, Patient Placement options, Patient Community resources, Patient Activities of Daily Living, Patient Uses of Medical Equipment, Patient Health Practices/Safety , Patient Personal Hygiene/Grooming, Patient Aftercare Safety Plan - Discharge Discharge Criteria: Tolerates medication w/o severe side effects, Free of paranoid thoughts, Free of agitation, Normal sleep pattern, Reduction of target symptoms Discharge to:: Skilled Nursing - Additional Comments 10/15/16 10:15 Pt's progress and bx discussed in team . Pt's medications reviewed. Pt's medical and social issues discussed. Pt currently on a 1:1 for safety precautions and wandering bxs'. Pt remains confused and disoriented. - Treatment Team Participation Patient/Family/SO Statement: Dementia w/ behavioral disturbance, Psychosis unspecified, Mood Disorder unspecified; patient is in need of continued hospitalization for treatment and safety -Case discussed w/ legal guardian, Sharon Lin -Medicine consult appreciated -Continue Risperdal M-tab 0.5 mg PO Daily/ 1 mg PO Daily@1700 -Continue Depakote 125 mg PO BID, order VPA level on 10/23/16 -Individual and group therapy -Disposition planning Discussed with Family/SO: Yes (Tx plan discussed wt [facility] bilingual case manager, Sharon Lin via telephone) Was Patient/Family/SO present at Treatment Team Meeting: No Treatment Plan Review - Problem altered thought process Date Initiated: 10/21/16 Time Initiated: 10:16 Progress toward outcomes: unchanged - Discharge / Continuing Care Discharge to:: Skilled Nursing, Retirement Facility Behavioral Health Services: Other (Medication management at LTC facility) Health Needs: Follow up care/test, Doctor appointments, Special equipment, Nutritional, Medications/Rx, Recreational/Social
[2016-10-21] MEDS: Risperidone M tab 1 MG PO SCH (16:07)
[2016-10-22] MEDS: Multivitamin With Minerals Tab PO SCH (08:22)
[2016-10-22] MEDS: Risperidone M tab 0.5MG PO SCH (08:22)
[2016-10-22] MEDS: Divalproex 125 mg Sprinkle Capsule PO SCH ×2 (08:22→16:20)
--- NOTE | 2016-10-22 08:29 | PCM.PYCHPN ---
Psychiatric Progress Note - Psychiatric Progress Note Patient seen today, length of contact: Patient evaluated, case discussed with team, chart reviewed, 35 min Patient Chief Complaint: "I'm okay" Problems Identified/Issues Discussed: Patient is calmer and less irritable. She continues to be guarded, but told service writer advisor her son's name. Patient may also be guarded to cover cognitive deficits. No episodes of aggression or agitation. Patient continues to be disoriented to situation/time. She knows she is in a hospital. She has been eating well. Medication Change: No Medical Record Reviewed: Yes Mental Status Examination - Cognitive Function Orientation: Person, Place ("Hospital") Memory: Impaired Attention: Poor Concentration: Poor Association: Loose Fund of Knowledge: Poor Decription of patient's judgement and insights: Poor I/J - Mood Mood: Neutral - Affect Affect: Constricted (Irritable) - Speech Speech: Soft - Formal Thought Process Formal Thought Process: Paranoia, Loosening of associations Psychotic Thoughts and Behaviors: +Less paranoia - Suicidal Ideation Suicidal Ideation: No - Homicidal Ideation Homicidal Ideation: No Goal/Treatment Plan - Goal/Treatment Plan Need for Continued Stay: Remain at risks for inpatient hospitalization, Discharge may exacerbated symptoms, Failed transitioning, Severe functional impairment Progress Toward Problem(s) and Goals/Treatment Plan: Dementia w/ behavioral disturbance, Psychosis unspecified, Mood Disorder unspecified; patient is in need of continued hospitalization for treatment and safety -Case discussed w/ legal guardian, Sharon Lin -Medicine consult appreciated -Continue Risperdal M-tab 0.5 mg PO Daily/ 1 mg PO Daily@1700 -Continue Depakote 125 mg PO BID, order VPA level on 10/23/16 -Individual and group therapy -Psychology consult to determine cognitive function -Disposition planning Estimated Date of D/C: 10/27/16 - Smoking Cessation Smoking Cessation Initiated: No Reason for not providing: Not indicated
[2016-10-22] MEDS: Risperidone M tab 1 MG PO SCH (16:20)
--- NOTE | 2016-10-23 08:41 | PCM.PYCHPN ---
Psychiatric Progress Note - Psychiatric Progress Note Patient seen today, length of contact: Patient evaluated, case discussed with team, chart reviewed, 35 min Patient Chief Complaint: "I'm okay" Problems Identified/Issues Discussed: Patient is calmer and less irritable. She continues to be guarded, but seems to be less paranoia and patient may be guarded to cover up cognitive deficits/ memory loss. No episodes of aggression or agitation. Patient continues to be disoriented to situation/time. She knows she is in a hospital. She has been eating well. Diagnostic Results: VPA 10/23/16- 30.6 Medication Change: No Medical Record Reviewed: Yes Mental Status Examination - Cognitive Function Orientation: Person, Place ("Hospital") Memory: Impaired Attention: Poor Concentration: Poor Association: Loose Fund of Knowledge: Poor Decription of patient's judgement and insights: Poor I/J - Mood Mood: Neutral - Affect Affect: Constricted (Irritable) - Speech Speech: Soft - Formal Thought Process Formal Thought Process: Paranoia, Loosening of associations Psychotic Thoughts and Behaviors: +Less paranoia - Suicidal Ideation Suicidal Ideation: No - Homicidal Ideation Homicidal Ideation: No Goal/Treatment Plan - Goal/Treatment Plan Need for Continued Stay: Remain at risks for inpatient hospitalization, Discharge may exacerbated symptoms, Failed transitioning, Severe functional impairment Progress Toward Problem(s) and Goals/Treatment Plan: Dementia w/ behavioral disturbance, Psychosis unspecified, Mood Disorder unspecified; patient is in need of continued hospitalization for treatment and safety -Case discussed w/ legal guardian, Sharon Lin -Medicine consult appreciated -Continue Risperdal M-tab 0.5 mg PO Daily/ 1 mg PO Daily@1700 -Continue Depakote 125 mg PO BID, VPA 10/23/16- 30.6 -Individual and group therapy -Psychology consult to determine cognitive function -Disposition planning- patient will likely need placement in longterm facility when she is psychiatrically stable Estimated Date of D/C: 10/29/16 - Smoking Cessation Smoking Cessation Initiated: No Reason for not providing: Not indicated
[2016-10-23] MEDS: Risperidone M tab 0.5MG PO SCH (08:54)
[2016-10-23] MEDS: Divalproex 125 mg Sprinkle Capsule PO SCH ×2 (08:54→16:41)
[2016-10-23] MEDS: Multivitamin With Minerals Tab PO SCH (08:55)
--- NOTE | 2016-10-23 11:17 | CP.PCM.CON ---
History of Present Illness - History of Present Illness History of Present Illness: Pt is an 81 year old female admitted to the geropsych unit and referred to the typewriter assembly and parts inspector for evaluation. On the DRS, pt scored an overall score of 80>. Pt scored in the Deficient Range on Attention, Conceptualization, Memory and Initiation tasks. 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 Overall 80> Attention 28 Construction 4 Conceptualization 22 Memory 10> Initiation 15 Significant cognitive deficits evident on evaluation. Pt able to acknowledge deficits and responded "I don't remember." 24 hour care reccomended. Thank you for this referral, Dr. Eduardo Past Patient History - Past Social History Smoking Status: Never Smoked - CARDIAC Hx Cardiac Disorders: No Hx Hypertension: No - PULMONARY Hx Tuberculosis: No - NEUROLOGICAL HX Cerebrovascular Accident: No Hx Dementia: Yes Hx Seizures: No - HEENT Hx HEENT Problems: No - RENAL Hx Chronic Kidney Disease: No - ENDOCRINE/METABOLIC Hx Endocrine Disorders: No - HEMATOLOGICAL/ONCOLOGICAL Hx Cancer: No Hx Human Immunodeficiency Virus (HIV): No - INTEGUMENTARY Hx Dermatological Problems: No - MUSCULOSKELETAL/RHEUMATOLOGICAL Hx Falls: No Hx Unsteady Gait: Yes - GASTROINTESTINAL Hx Gastrointestinal Disorders: No - GENITOURINARY/GYNECOLOGICAL Hx Sexually Transmitted Disorders: No - PSYCHIATRIC Hx Substance Use: No - SURGICAL HISTORY Hx Surgeries: Yes Hx Joint Replacement: Yes (right hip) - ANESTHESIA Hx Anesthesia: No Meds Allergies/Adverse Reactions: Allergies Allergy/AdvReac Type Severity Reaction Status Date / Time No Known Allergies Allergy Verified 10/12/16 11:51 - Medications Medications: Current Medications Acetaminophen (Tylenol 325mg Tab) 650 mg PO Q4 PRN PRN Reason: Pain, moderate (4-7) Last Admin: 10/19/16 20:34 Dose: 650 mg Al Hydrox/Mg Hydrox/Simethicone (Maalox Plus 30 Ml) 30 ml PO Q4 PRN PRN Reason: Dyspepsia Atorvastatin Calcium (Lipitor) 20 mg PO DAILY [facility] Last Admin: 10/23/16 08:54 Dose: 20 mg Bismuth Subsalicylate (Pepto-Bismol) 524 mg PO Q4 PRN PRN Reason: Diarrhea Cyanocobalamin (Vitamin B12 1000 Mcg Tab) 1,000 mcg PO DAILY [facility] Last Admin: 10/23/16 08:57 Dose: 1,000 mcg Divalproex Sodium (Depakote Sprinkles) 125 mg PO BID [facility] Last Admin: 10/23/16 08:54 Dose: 125 mg Lisinopril (Zestril) 5 mg PO DAILY [facility] Last Admin: 10/23/16 08:57 Dose: 5 mg Lorazepam (Ativan) 0.5 mg PO HS PRN PRN Reason: Insomnia Stop: 10/27/16 00:17 Last Admin: 10/20/16 21:39 Dose: 0.5 mg Lorazepam (Ativan) 0.5 mg PO Q6 PRN PRN Reason: Anixety/Agitation Stop: 10/27/16 00:17 Last Admin: 10/23/16 04:00 Dose: 0.5 mg Lorazepam (Ativan) 0.5 mg IM Q6 PRN PRN Reason: Anxiety Magnesium Hydroxide (Milk Of Magnesia) 30 ml PO HS PRN PRN Reason: Constipation Multivitamins/Minerals (Therapeutic-M Tab) 1 tab PO DAILY [facility] Last Admin: 10/23/16 08:55 Dose: 1 tab Risperidone (Risperdal M-Tab) 0.5 mg PO DAILY [facility] Last Admin: 10/23/16 08:54 Dose: 0.5 mg Risperidone (Risperdal M-Tab) 1 mg PO DAILY@1700 [facility] Last Admin: 10/22/16 16:20 Dose: 1 mg Results - Vital Signs Recent Vital Signs: Last Vital Signs Temp 97.7 F 10/23/16 06:00 Pulse 88 10/23/16 08:57 Resp 18 10/23/16 06:00 BP 125/50 L 10/23/16 08:57 Pulse Ox 99 10/12/16 15:43 - Labs Result Diagrams: 10/12/16 12:20 10/13/16 07:22 Labs: Laboratory Results - last 24 hr 10/23/16 07:20 Valproic Acid 30.6 L
[2016-10-23] MEDS: Risperidone M tab 1 MG PO SCH (16:42)
[2016-10-24] MEDS: Multivitamin With Minerals Tab PO SCH (08:58)
[2016-10-24] MEDS: Risperidone M tab 0.5MG PO SCH ×2 (08:59→17:06)
[2016-10-24] MEDS: Divalproex 125 mg Sprinkle Capsule PO SCH ×2 (08:59→17:05)
--- NOTE | 2016-10-24 10:06 | PCM.PYCHPN ---
Psychiatric Progress Note - Psychiatric Progress Note Patient seen today, length of contact: Patient evaluated, case discussed with team, chart reviewed, 35 min Patient Chief Complaint: "I'm okay" Problems Identified/Issues Discussed: Patient is calm and pleasant. She was evaluated by Dr. Eduardo and found to have dementia. She is less guarded and has not expressed any paranoid towards promotion writer. No episodes of aggression or agitation. Patient continues to be disoriented to situation/time. She knows she is in a hospital. She has been eating well. Diagnostic Results: VPA 10/23/16- 30.6 Medication Change: Yes (Lower Risperdal to 0.5 mg PO BID) Medical Record Reviewed: Yes Consults ordered or reviewed: Psychology consult- Pt is an 81 year old female admitted to the geropsych unit and referred to the promotion writer for evaluation. On the DRS, pt scored an overall score of 80>. Pt scored in the Deficient Range on Attention, Conceptualization, Memory and Initiation tasks. 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 Overall 80> Attention 28 Construction 4 Conceptualization 22 Memory 10> Initiation 15 Significant cognitive deficits evident on evaluation. Pt able to acknowledge deficits and responded "I don't remember." 24 hour care reccomended. Thank you for this referral, Dr. Eduardo Mental Status Examination - Cognitive Function Orientation: Person, Place ("Hospital") Memory: Impaired Attention: Poor Concentration: Poor Association: Loose Fund of Knowledge: Poor Decription of patient's judgement and insights: Poor I/J - Mood Mood: Neutral - Affect Affect: Constricted (Irritable) - Speech Speech: Soft - Formal Thought Process Formal Thought Process: Paranoia, Loosening of associations Psychotic Thoughts and Behaviors: +Less paranoia - Suicidal Ideation Suicidal Ideation: No - Homicidal Ideation Homicidal Ideation: No Goal/Treatment Plan - Goal/Treatment Plan Need for Continued Stay: Remain at risks for inpatient hospitalization, Discharge may exacerbated symptoms, Failed transitioning, Severe functional impairment Progress Toward Problem(s) and Goals/Treatment Plan: Dementia w/ behavioral disturbance, Psychosis unspecified, Mood Disorder unspecified; patient is in need of continued hospitalization for treatment and safety -Case discussed w/ legal guardian, Sharon Lin -Medicine consult appreciated -Wll lower Risperdal to M-tab 0.5 mg PO BID to see if patient can tolerate lower dosage without increase in symptoms/paranoia -Continue Depakote 125 mg PO BID, VPA 10/23/16- 30.6 -Individual and group therapy -Psychology consult appreciated -Disposition planning- patient will likely need placement in detention facility when she is psychiatrically stable Estimated Date of D/C: 10/29/16 - Smoking Cessation Smoking Cessation Initiated: No Reason for not providing: Not indicated
[2016-10-25] MEDS: Divalproex 125 mg Sprinkle Capsule PO SCH ×2 (08:13→16:22)
[2016-10-25] MEDS: Multivitamin With Minerals Tab PO SCH (08:15)
[2016-10-25] MEDS: Risperidone M tab 0.5MG PO SCH ×2 (09:13→16:22)
--- NOTE | 2016-10-25 10:27 | PCM.PYCHPN ---
Psychiatric Progress Note - Psychiatric Progress Note Patient seen today, length of contact: Patient evaluated, case discussed with team, chart reviewed, 35 min Patient Chief Complaint: "I'm okay" Problems Identified/Issues Discussed: No significant events overnight. Patient is calm and pleasant. She is less guarded and has not expressed any paranoid towards rfp writer. No episodes of aggression or agitation. Patient continues to be disoriented to situation/time. She knows she is in a hospital. She has been eating well. Diagnostic Results: VPA 10/23/16- .6 Medication Change: No Medical Record Reviewed: Yes Consults ordered or reviewed: Psychology consult- Pt is an 81 year old female admitted to the geropsych unit and referred to the rfp writer for evaluation. On the DRS, pt scored an overall score of 80>. Pt scored in the Deficient Range on Attention, Conceptualization, Memory and Initiation tasks. 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 Overall 80> Attention 28 Construction 4 Conceptualization 22 Memory 10> Initiation 15 Significant cognitive deficits evident on evaluation. Pt able to acknowledge deficits and responded "I don't remember." 24 hour care reccomended. Thank you for this referral, Dr. Eduardo Mental Status Examination - Cognitive Function Orientation: Person, Place ("Hospital") Memory: Impaired Attention: Poor Concentration: Poor Association: Loose Fund of Knowledge: Poor Decription of patient's judgement and insights: Poor I/J - Mood Mood: Neutral - Affect Affect: Constricted (Irritable) - Speech Speech: Soft - Formal Thought Process Formal Thought Process: Loosening of associations Psychotic Thoughts and Behaviors: No current paranoia, denies AH/VH - Suicidal Ideation Suicidal Ideation: No - Homicidal Ideation Homicidal Ideation: No Goal/Treatment Plan - Goal/Treatment Plan Need for Continued Stay: Remain at risks for inpatient hospitalization, Discharge may exacerbated symptoms, Failed transitioning, Severe functional impairment Progress Toward Problem(s) and Goals/Treatment Plan: Dementia w/ behavioral disturbance, Psychosis unspecified, Mood Disorder unspecified; patient is in need of continued hospitalization for treatment and safety -Case discussed w/ legal guardian, Sharon Lin -Medicine consult appreciated -Continue Risperdal M-tab 0.5 mg PO BID -Continue Depakote 125 mg PO BID, VPA 10/23/16- 30.6 -Individual and group therapy -Psychology consult appreciated -Disposition planning- patient will likely need placement in [facility] facility when she is psychiatrically stable Estimated Date of D/C: 10/29/16 - Smoking Cessation Smoking Cessation Initiated: No Reason for not providing: Not indicated
--- NOTE | 2016-10-26 08:20 | PCM.PYCHPN ---
Psychiatric Progress Note - Psychiatric Progress Note Patient seen today, length of contact: Patient evaluated, case discussed with team, chart reviewed, 35 min Patient Chief Complaint: "I'm okay" Problems Identified/Issues Discussed: No significant events over the weekend. Patient is calm and pleasant. She is less guarded w/ hand sign writer. No episodes of aggression or agitation. Patient continues to be disoriented to situation/time. She knows she is in a hospital. She has been eating well. Diagnostic Results: VPA 10/23/16- 30.6 Medication Change: No Medical Record Reviewed: Yes Consults ordered or reviewed: Psychology consult- Pt is an 81 year old female admitted to the geropsych unit and referred to the hand sign writer for evaluation. On the DRS, pt scored an overall score of 80>. Pt scored in the Deficient Range on Attention, Conceptualization, Memory and Initiation tasks. 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 Overall 80> Attention 28 Construction 4 Conceptualization 22 Memory 10> Initiation 15 Significant cognitive deficits evident on evaluation. Pt able to acknowledge deficits and responded "I don't remember." 24 hour care reccomended. Thank you for this referral, Dr. Eduardo Mental Status Examination - Cognitive Function Orientation: Person, Place ("Hospital") Memory: Impaired Attention: Poor Concentration: Poor Association: Loose Fund of Knowledge: Poor Decription of patient's judgement and insights: Poor I/J - Mood Mood: Neutral - Affect Affect: Constricted (Irritable) - Speech Speech: Soft - Formal Thought Process Formal Thought Process: Loosening of associations Psychotic Thoughts and Behaviors: No current paranoia, denies AH/VH - Suicidal Ideation Suicidal Ideation: No - Homicidal Ideation Homicidal Ideation: No Goal/Treatment Plan - Goal/Treatment Plan Need for Continued Stay: Remain at risks for inpatient hospitalization, Discharge may exacerbated symptoms, Failed transitioning, Severe functional impairment Progress Toward Problem(s) and Goals/Treatment Plan: Dementia w/ behavioral disturbance, Psychosis unspecified, Mood Disorder unspecified; patient is in need of continued hospitalization for treatment and safety - to meet w/ legal guardian,Sharon Lin, on 10/29/16 to discuss progress and disposition -Medicine consult appreciated -Continue Risperdal M-tab 0.5 mg PO BID -Continue Depakote 125 mg PO BID, VPA 10/23/16- 30.6 -Individual and group therapy -Psychology consult appreciated- patient has significant cognitive deficits -Disposition planning- patient will likely need placement in prison facility when she is psychiatrically stable Estimated Date of D/C: 10/30/16
[2016-10-26] MEDS: Multivitamin With Minerals Tab PO SCH (08:22)
[2016-10-26] MEDS: Divalproex 125 mg Sprinkle Capsule PO SCH ×2 (08:22→16:42)
[2016-10-26] MEDS: Risperidone M tab 0.5MG PO SCH ×2 (08:23→16:42)
[2016-10-27] MEDS: guaiFENesin 100 mg/5 ml Syrup UD PO PRN ×2 (06:16→21:30)
--- NOTE | 2016-10-27 07:59 | PCM.PYCHPN ---
Psychiatric Progress Note - Psychiatric Progress Note Patient seen today, length of contact: Patient evaluated, case discussed with team, chart reviewed, 35 min Patient Chief Complaint: "I'm okay" Problems Identified/Issues Discussed: No significant events overnight. Patient is calm and pleasant. She is less guarded w/ sheet writer. No episodes of aggression or agitation. Patient continues to be disoriented to situation/time. She has been eating well. Diagnostic Results: VPA 10/23/16- 30.6 Medication Change: No Medical Record Reviewed: Yes Mental Status Examination - Cognitive Function Orientation: Person, Place ("Hospital") Memory: Impaired Attention: Poor Concentration: Poor Association: Loose Fund of Knowledge: Poor Decription of patient's judgement and insights: Poor I/J - Mood Mood: Neutral - Affect Affect: Constricted (Irritable) - Speech Speech: Soft - Formal Thought Process Formal Thought Process: Loosening of associations Psychotic Thoughts and Behaviors: No current paranoia, denies AH/VH - Suicidal Ideation Suicidal Ideation: No - Homicidal Ideation Homicidal Ideation: No Goal/Treatment Plan - Goal/Treatment Plan Need for Continued Stay: Remain at risks for inpatient hospitalization, Discharge may exacerbated symptoms, Failed transitioning, Severe functional impairment Progress Toward Problem(s) and Goals/Treatment Plan: Dementia w/ behavioral disturbance, Psychosis unspecified, Mood Disorder unspecified; patient is in need of continued hospitalization for treatment and safety - to meet w/ legal guardian,Sharon Lin, on 10/29/16 to discuss progress and disposition -Medicine consult appreciated -Continue Risperdal M-tab 0.5 mg PO BID -Continue Depakote 125 mg PO BID, VPA 10/23/16- 30.6 -Individual and group therapy -Psychology consult appreciated- patient has significant cognitive deficits -Disposition planning- patient will likely need placement in long term facility when she is psychiatrically stable Estimated Date of D/C: 11/02/16 - Smoking Cessation Smoking Cessation Initiated: No Reason for not providing: Not indicated
[2016-10-27] MEDS: Multivitamin With Minerals Tab PO SCH (08:49)
[2016-10-27] MEDS: Risperidone M tab 0.5MG PO SCH ×2 (08:49→17:45)
[2016-10-27] MEDS: Divalproex 125 mg Sprinkle Capsule PO SCH ×2 (08:50→17:44)
[2016-10-28] MEDS: Multivitamin With Minerals Tab PO SCH (08:38)
[2016-10-28] MEDS: Divalproex 125 mg Sprinkle Capsule PO SCH ×2 (08:38→16:54)
[2016-10-28] MEDS: Risperidone M tab 0.5MG PO SCH ×2 (08:38→16:54)
--- NOTE | 2016-10-28 09:24 | PCM.PYCHPN ---
Psychiatric Progress Note - Psychiatric Progress Note Patient seen today, length of contact: Patient evaluated, case discussed with team, chart reviewed, 35 min Patient Chief Complaint: "I'm okay" Problems Identified/Issues Discussed: Patient has some mild paranoia towards one patient, but is otherwise calm and not paranoid towards others. Patient is calm and pleasant. No episodes of aggression or agitation. Patient continues to be disoriented to situation/time. She has been eating well. Diagnostic Results: VPA 10/23/16- 30.6 Medication Change: No Medical Record Reviewed: Yes Mental Status Examination - Cognitive Function Orientation: Person, Place ("Hospital") Memory: Impaired Attention: Poor Concentration: Poor Association: Loose Fund of Knowledge: Poor Decription of patient's judgement and insights: Poor I/J - Mood Mood: Neutral - Affect Affect: Constricted (Irritable) - Speech Speech: Soft - Formal Thought Process Formal Thought Process: Loosening of associations Psychotic Thoughts and Behaviors: No current paranoia, denies AH/VH - Suicidal Ideation Suicidal Ideation: No - Homicidal Ideation Homicidal Ideation: No Goal/Treatment Plan - Goal/Treatment Plan Need for Continued Stay: Remain at risks for inpatient hospitalization, Discharge may exacerbated symptoms, Failed transitioning, Severe functional impairment Progress Toward Problem(s) and Goals/Treatment Plan: Dementia w/ behavioral disturbance, Psychosis unspecified, Mood Disorder unspecified; patient is in need of continued hospitalization for treatment and safety - to meet w/ legal guardian,Sharon Lin, on 10/29/16 to discuss progress and disposition -Medicine consult appreciated -Continue Risperdal M-tab 0.5 mg PO BID -Continue Depakote 125 mg PO BID, VPA 10/23/16- 30.6 -Individual and group therapy -Psychology consult appreciated- patient has significant cognitive deficits -Disposition planning- patient will likely need placement in prison facility when she is psychiatrically stable Estimated Date of D/C: 11/02/16
--- NOTE | 2016-10-28 10:46 | PCM.BM ---
Treatment Plan Problems - Problems identified on initial assessmt altered thought process Date Initiated: 10/13/16 Time Initiated: 10:16 Assessment reference: NA Status: Active Treatment assets and liabiliti Patient Assests: good support system, negotiates basic needs, financial stabiity , other Patient Liabilities: live alone, physical pain, medical problems, imparied memory - Milieu Protocol Maintain good personal hygiene: daily Encourage regular showers, daily Remind patient to perform daily oral care, daily Assist patient to perform ADL's Maintain personal safety: every shift Educate patient to report safety concerns to staff, every shift Monitor environment for contraband/sharps Medication safety: Monitor for expected outcome, potential side effects: every shift, Assess barriers to learning: every shift, Assess readiness for medication education: every shift Milieu Narrative: Dementia w/ behavioral disturbance, Psychosis unspecified, Mood Disorder unspecified; patient is in need of continued hospitalization for treatment and safety -SW to meet w/ legal guardian,Sharon Lin, on 10/29/16 to discuss progress and disposition -Medicine consult appreciated -Continue Risperdal M-tab 0.5 mg PO BID -Continue Depakote 125 mg PO BID, VPA 10/23/16- 30.6 -Individual and group therapy -Psychology consult appreciated- patient has significant cognitive deficits -Disposition planning- patient will likely need placement in half-way facility when she is psychiatrically stable Family Contact Family involvement: Family/SO is involved - Outside Agency [facility], [facility] involvment: Following patient during stay, Information-sharing Agency contact name: Stem Setter, Sharon Melloiz Agency contact number: [phone] Discharge/Continuing Care - Education Needs Education Needs: Family Medication, Family Diagnosis/Disease Process, Family Coping Skills, Family Placement options, Family Community resources, Family Activities of Daily Living, Family Uses of Medical Equipment, Family Health Practices/Safety, Family Personal Hygiene/Grooming, Family Aftercare Safety Plan , Patient Medication, Patient Diagnosis/Disease Process, Patient Coping Skills, Patient Placement options, Patient Community resources, Patient Activities of Daily Living, Patient Uses of Medical Equipment, Patient Health Practices/Safety , Patient Personal Hygiene/Grooming, Patient Aftercare Safety Plan - Discharge Discharge Criteria: Tolerates medication w/o severe side effects, Free of paranoid thoughts, Free of agitation, Normal sleep pattern, Reduction of target symptoms Discharge to:: Residential, Detention Facility - Additional Comments 10/15/16 10:15 Pt's progress and bx discussed in team . Pt's medications reviewed. Pt's medical and social issues discussed. Pt currently on a 1:1 for safety precautions and wandering bxs'. Pt remains confused and disoriented. - Treatment Team Participation Patient/Family/SO Statement: Dementia w/ behavioral disturbance, Psychosis unspecified, Mood Disorder unspecified; patient is in need of continued hospitalization for treatment and safety -SW to meet w/ legal guardian,Sharon Lin, on 10/29/16 to discuss progress and disposition -Medicine consult appreciated -Continue Risperdal M-tab 0.5 mg PO BID -Continue Depakote 125 mg PO BID, VPA 10/23/16- 30.6 -Individual and group therapy -Psychology consult appreciated- patient has significant cognitive deficits -Disposition planning- patient will likely need placement in half-way facility when she is psychiatrically stable Discussed with Family/SO: Yes (Tx plan discussed wt [facility] case sealer, Sharon Lin via telephone) Was Patient/Family/SO present at Treatment Team Meeting: No Treatment Plan Review - Problem altered thought process Date Initiated: 10/21/16 Time Initiated: 10:16 Progress toward outcomes: unchanged
[2016-10-29] MEDS: Multivitamin With Minerals Tab PO SCH (08:07)
[2016-10-29] MEDS: Risperidone M tab 0.5MG PO SCH ×2 (08:07→16:43)
[2016-10-29] MEDS: Divalproex 125 mg Sprinkle Capsule PO SCH ×2 (08:08→16:43)
--- NOTE | 2016-10-29 09:44 | PCM.PYCHPN ---
Psychiatric Progress Note - Psychiatric Progress Note Patient seen today, length of contact: Patient evaluated, case discussed with team, chart reviewed, 35 min Patient Chief Complaint: "I'm okay" Problems Identified/Issues Discussed: No significant events overnight. Patient is calm and pleasant. No episodes of aggression or agitation. Patient continues to be disoriented to situation/time. She has been eating well. Diagnostic Results: VPA 10/23/16- 30.6 Medication Change: No Medical Record Reviewed: Yes Mental Status Examination - Cognitive Function Orientation: Person, Place ("Hospital") Memory: Impaired Attention: Poor Concentration: Poor Association: Loose Fund of Knowledge: Poor Decription of patient's judgement and insights: Poor I/J - Mood Mood: Neutral - Affect Affect: Constricted (Irritable) - Speech Speech: Soft - Formal Thought Process Formal Thought Process: Loosening of associations Psychotic Thoughts and Behaviors: No current paranoia, denies AH/VH - Suicidal Ideation Suicidal Ideation: No - Homicidal Ideation Homicidal Ideation: No Goal/Treatment Plan - Goal/Treatment Plan Need for Continued Stay: Remain at risks for inpatient hospitalization, Severe functional impairment Progress Toward Problem(s) and Goals/Treatment Plan: Dementia w/ behavioral disturbance, Psychosis unspecified, Mood Disorder unspecified; patient is in need of continued hospitalization for treatment and safety -SW to meet w/ legal guardian,Sharon Lin, today to discuss progress and disposition -Medicine consult appreciated -Continue Risperdal M-tab 0.5 mg PO BID -Continue Depakote 125 mg PO BID, VPA 10/23/16- 30.6 -Individual and group therapy -Psychology consult appreciated- patient has significant cognitive deficits -Disposition planning- patient will likely need placement in residential facility when she is psychiatrically stable Estimated Date of D/C: 11/02/16
[2016-10-30] MEDS: Risperidone M tab 0.5MG PO SCH ×2 (08:11→16:21)
[2016-10-30] MEDS: Divalproex 125 mg Sprinkle Capsule PO SCH ×2 (08:11→16:20)
--- NOTE | 2016-10-30 08:59 | PCM.PYCHPN ---
Psychiatric Progress Note - Psychiatric Progress Note Patient seen today, length of contact: Patient evaluated, case discussed with team, chart reviewed, 35 min Patient Chief Complaint: "I'm okay" Problems Identified/Issues Discussed: No significant events overnight. Patient is calm and pleasant. No episodes of aggression or agitation. Patient continues to be disoriented to situation/time. She has been eating well and sleeping well. Diagnostic Results: VPA 10/23/16- .6 Medication Change: No Medical Record Reviewed: Yes Mental Status Examination - Cognitive Function Orientation: Person, Place ("Hospital") Memory: Impaired Attention: Poor Concentration: Poor Association: Loose Fund of Knowledge: Poor Decription of patient's judgement and insights: Poor I/J - Mood Mood: Neutral - Affect Affect: Broad - Speech Speech: Appropriate - Formal Thought Process Formal Thought Process: Loosening of associations Psychotic Thoughts and Behaviors: No current paranoia, denies AH/VH - Suicidal Ideation Suicidal Ideation: No - Homicidal Ideation Homicidal Ideation: No Goal/Treatment Plan - Goal/Treatment Plan Need for Continued Stay: Severe functional impairment Progress Toward Problem(s) and Goals/Treatment Plan: Dementia w/ behavioral disturbance, Psychosis unspecified, Mood Disorder unspecified; patient has improved clinically and is psychiatrically stable for referral for jail placement. -SW to met w/ legal guardian,Sharon Lin, and discussed progress and disposition -Medicine consult appreciated -Continue Risperdal M-tab 0.5 mg PO BID -Continue Depakote 125 mg PO BID, VPA 10/23/16- 30.6 -Individual and group therapy -Psychology consult appreciated- patient has significant cognitive deficits -Disposition planning- patient is psychiatrically stable for referral to senior living facility Estimated Date of D/C: 11/06/16 - Smoking Cessation Smoking Cessation Initiated: No Reason for not providing: Not indicated
[2016-10-30] MEDS: guaiFENesin 100 mg/5 ml Syrup UD PO PRN (20:04)
[2016-10-31] MEDS: Risperidone M tab 0.5MG PO SCH ×2 (09:14→16:34)
[2016-10-31] MEDS: Divalproex 125 mg Sprinkle Capsule PO SCH ×2 (09:14→16:33)
--- NOTE | 2016-10-31 10:35 | PCM.PYCHPN ---
Psychiatric Progress Note - Psychiatric Progress Note Patient seen today, length of contact: Patient evaluated, case discussed with team, chart reviewed, 35 min Patient Chief Complaint: pt is reported to be calm per staff, rx adherent, reportedly vomited am meds, hospitalist saw pt., no aggressive behavior Problems Identified/Issues Discussed: alteration in cognition alteration in self care alteration in safety alteration in b12 levels Medical Problems: per chart Diagnostic Results: per psychiatry per medicine per nursing per social work DSM 5 Symptoms Update: alteration in cognition Medication Change: No Medical Record Reviewed: Yes Consults ordered or reviewed: pt seen by hospitalist Mental Status Examination - Cognitive Function Orientation: Person, Place ("Hospital") Memory: Impaired Attention: Poor Concentration: Poor Association: Loose Fund of Knowledge: Poor Decription of patient's judgement and insights: impaired - Mood Mood: Neutral - Affect Affect: Broad - Speech Speech: Appropriate - Formal Thought Process Formal Thought Process: Loosening of associations - Suicidal Ideation Suicidal Ideation: No - Homicidal Ideation Homicidal Ideation: No Goal/Treatment Plan - Goal/Treatment Plan Need for Continued Stay: Severe functional impairment Progress Toward Problem(s) and Goals/Treatment Plan: inpt/milieu adjust meds per status continue 1 to 1 for safety mvi/mineral one tab per day pt requires total care-team has been in contact (per note) with legal guardian who has given permission to adjust meds (psych/medicine ) as necessary discharge planning in progress Estimated Date of D/C: 11/06/16 - Smoking Cessation Smoking Cessation Initiated: No Reason for not providing: defers need
[2016-10-31] MEDS ORDERED: Multivitamin With Minerals Tab PO SCH (10:45)
[2016-10-31] MEDS: Multivitamin With Minerals Tab PO SCH (16:35)
[2016-11-01] MEDS: Risperidone M tab 0.5MG PO SCH ×2 (08:33→17:02)
[2016-11-01] MEDS: Divalproex 125 mg Sprinkle Capsule PO SCH ×2 (08:33→17:02)
[2016-11-01] MEDS: Multivitamin With Minerals Tab PO SCH (08:34)
--- NOTE | 2016-11-01 20:22 | PCM.PYCHPN ---
Psychiatric Progress Note - Psychiatric Progress Note Patient seen today, length of contact: Patient evaluated, case discussed with team, chart reviewed, 35 min Patient Chief Complaint: pt is reported to be calm per staff, rx adherent, reportedly vomited am meds, hospitalist saw pt., no aggressive behavior Problems Identified/Issues Discussed: alteration in cognition alteration in self care alteration in safety alteration in b12 levels Medical Problems: per chart Diagnostic Results: per psychiatry per medicine per nursing per social work DSM 5 Symptoms Update: ALTERATION IN THOUGHT PROCESS PRIMARY LANGUAGE OTHER THAN [place] Medication Change: No Medical Record Reviewed: Yes Consults ordered or reviewed: HOSPITALIST Mental Status Examination - Cognitive Function Orientation: Person, Place ("Hospital") Memory: Impaired Attention: Poor Concentration: Poor Association: Loose Fund of Knowledge: Poor Decription of patient's judgement and insights: impaired - Mood Mood: Neutral - Affect Affect: Broad - Speech Speech: Appropriate - Formal Thought Process Formal Thought Process: Loosening of associations - Suicidal Ideation Suicidal Ideation: No - Homicidal Ideation Homicidal Ideation: No Goal/Treatment Plan - Goal/Treatment Plan Need for Continued Stay: Severe functional impairment Progress Toward Problem(s) and Goals/Treatment Plan: inpt/milieu adjust meds per status continue 1 to 1 for safety mvi/mineral one tab per day pt requires total care-team has been in contact (per note) with legal guardian who has given permission to adjust meds (psych/medicine ) as necessary discharge planning in progress Estimated Date of D/C: 11/06/16 - Smoking Cessation Smoking Cessation Initiated: No Reason for not providing: PT DEFERS
[2016-11-02] MEDS: Divalproex 125 mg Sprinkle Capsule PO SCH ×2 (08:49→17:19)
[2016-11-02] MEDS: Multivitamin With Minerals Tab PO SCH (08:49)
[2016-11-02] MEDS: Risperidone M tab 0.5MG PO SCH ×2 (08:49→17:19)
--- NOTE | 2016-11-02 09:22 | PCM.PYCHPN ---
Psychiatric Progress Note - Psychiatric Progress Note Patient seen today, length of contact: Patient evaluated, case discussed with team, chart reviewed, 35 min Patient Chief Complaint: "I'm okay" Problems Identified/Issues Discussed: No significant events over the weekend. Patient was not on 1:1 observation and does not need 1:1 observation. Patient is calm and pleasant. No episodes of aggression or agitation. Patient continues to be disoriented to situation/ time. She has been eating well and sleeping well. Diagnostic Results: VPA 10/23/16- 30.6; VPA 11/02/16- 38.4 Medication Change: No Medical Record Reviewed: Yes Consults ordered or reviewed: Medicine consult appreciated Mental Status Examination - Cognitive Function Orientation: Person, Place ("Hospital") Memory: Impaired Attention: Poor Concentration: Poor Association: Loose Fund of Knowledge: Poor Decription of patient's judgement and insights: Poor I/J due to chronic dementia - Mood Mood: Neutral - Affect Affect: Broad - Speech Speech: Appropriate - Formal Thought Process Formal Thought Process: Loosening of associations Psychotic Thoughts and Behaviors: Denies AH/VH/paranoia/delusions - Suicidal Ideation Suicidal Ideation: No - Homicidal Ideation Homicidal Ideation: No Goal/Treatment Plan - Goal/Treatment Plan Need for Continued Stay: Severe functional impairment Progress Toward Problem(s) and Goals/Treatment Plan: Dementia w/ behavioral disturbance, Psychosis unspecified, Mood Disorder unspecified; patient has improved clinically and is psychiatrically stable for referral for fci placement. -Medicine consult appreciated -Continue Risperdal M-tab 0.5 mg PO BID -Continue Depakote 125 mg PO BID, VPA 10/23/16- 30.6 -Individual and group therapy -Psychology consult appreciated- patient has significant cognitive deficits -Disposition planning- pending transition to fci facility, pending approval from legal guardian Estimated Date of D/C: 11/06/16 - Smoking Cessation Smoking Cessation Initiated: No Reason for not providing: Not indicated
[2016-11-03] MEDS: Divalproex 125 mg Sprinkle Capsule PO SCH ×2 (08:25→16:43)
[2016-11-03] MEDS: Risperidone M tab 0.5MG PO SCH ×2 (08:25→16:42)
[2016-11-03] MEDS: Multivitamin With Minerals Tab PO SCH (08:25)
--- NOTE | 2016-11-03 08:45 | PCM.PYCHPN ---
Psychiatric Progress Note - Psychiatric Progress Note Patient seen today, length of contact: Patient evaluated, case discussed with team, chart reviewed Patient Chief Complaint: "I'm okay" Problems Identified/Issues Discussed: No significant events overnight. Patient is calm and pleasant. No episodes of aggression or agitation. Patient continues to be disoriented to situation/time. She has been eating well and sleeping well. Diagnostic Results: VPA 10/23/16- 30.6; VPA 11/02/16- 38.4 Medication Change: No Medical Record Reviewed: Yes Mental Status Examination - Cognitive Function Orientation: Person, Place ("Hospital") Memory: Impaired Attention: Poor Concentration: Poor Association: Loose Fund of Knowledge: Poor Decription of patient's judgement and insights: Poor I/J due to chronic dementia - Mood Mood: Neutral - Affect Affect: Broad - Speech Speech: Appropriate - Formal Thought Process Formal Thought Process: Loosening of associations Psychotic Thoughts and Behaviors: Denies AH/VH/paranoia/delusions - Suicidal Ideation Suicidal Ideation: No - Homicidal Ideation Homicidal Ideation: No Goal/Treatment Plan - Goal/Treatment Plan Need for Continued Stay: Severe functional impairment Progress Toward Problem(s) and Goals/Treatment Plan: Dementia w/ behavioral disturbance, Psychosis unspecified, Mood Disorder unspecified; patient has improved clinically and is psychiatrically stable for referral for terminal gauger placement. -Medicine consult appreciated -Continue Risperdal M-tab 0.5 mg PO BID -Continue Depakote 125 mg PO BID, VPA 10/23/16- 30.6; VPA 11/02/16- 38.4 -Individual and group therapy -Psychology consult appreciated- patient has significant cognitive deficits -Disposition planning- pending transition to terminal gauger facility, pending approval from legal guardian Estimated Date of D/C: 11/06/16 - Smoking Cessation Smoking Cessation Initiated: No Reason for not providing: Not indicated
--- NOTE | 2016-11-04 07:57 | PCM.PYCHPN ---
Psychiatric Progress Note - Psychiatric Progress Note Patient seen today, length of contact: Patient evaluated, case discussed with team, chart reviewed Patient Chief Complaint: "I'm okay" Problems Identified/Issues Discussed: No significant events. Patient is calm and pleasant. No episodes of aggression or agitation. Patient continues to be disoriented to situation/time. She has been eating well and sleeping well. Diagnostic Results: VPA 10/23/16- 30.6; VPA 11/02/16- 38.4 Medication Change: No Medical Record Reviewed: Yes Mental Status Examination - Cognitive Function Orientation: Person, Place ("Hospital") Memory: Impaired Attention: Poor Concentration: Poor Association: Loose Fund of Knowledge: Poor Decription of patient's judgement and insights: Poor I/J due to chronic dementia - Mood Mood: Neutral - Affect Affect: Broad - Speech Speech: Appropriate - Formal Thought Process Formal Thought Process: Loosening of associations Psychotic Thoughts and Behaviors: Denies AH/VH/paranoia/delusions - Suicidal Ideation Suicidal Ideation: No - Homicidal Ideation Homicidal Ideation: No Goal/Treatment Plan - Goal/Treatment Plan Need for Continued Stay: Severe functional impairment Progress Toward Problem(s) and Goals/Treatment Plan: Dementia w/ behavioral disturbance, Psychosis unspecified, Mood Disorder unspecified; patient has improved clinically and is psychiatrically stable for referral for snf placement. -Medicine consult appreciated -Continue Risperdal M-tab 0.5 mg PO BID -Continue Depakote 125 mg PO BID, VPA 10/23/16- 30.6; VPA 11/02/16- 38.4 -Individual and group therapy -Psychology consult appreciated- patient has significant cognitive deficits -Disposition planning- pending transition to snf facility, pending approval from legal guardian Estimated Date of D/C: 11/06/16
[2016-11-04] MEDS: Divalproex 125 mg Sprinkle Capsule PO SCH ×2 (08:20→16:22)
[2016-11-04] MEDS: Risperidone M tab 0.5MG PO SCH ×2 (08:20→16:22)
[2016-11-04] MEDS: Multivitamin With Minerals Tab PO SCH (08:20)
--- NOTE | 2016-11-04 10:08 | PCM.BM ---
Treatment Plan Problems - Problems identified on initial assessmt altered thought process Date Initiated: 10/13/16 Time Initiated: 10:16 Assessment reference: NA Status: Active Treatment assets and liabiliti Patient Assests: good support system, negotiates basic needs, financial stabiity , other Patient Liabilities: live alone, physical pain, medical problems, imparied memory - Milieu Protocol Maintain good personal hygiene: daily Encourage regular showers, daily Remind patient to perform daily oral care, daily Assist patient to perform ADL's Maintain personal safety: every shift Educate patient to report safety concerns to staff, every shift Monitor environment for contraband/sharps Medication safety: Monitor for expected outcome, potential side effects: every shift, Assess barriers to learning: every shift, Assess readiness for medication education: every shift Milieu Narrative: Dementia w/ behavioral disturbance, Psychosis unspecified, Mood Disorder unspecified; patient has improved clinically and is psychiatrically stable for referral for computer terminal operator placement. -Medicine consult appreciated -Continue Risperdal M-tab 0.5 mg PO BID -Continue Depakote 125 mg PO BID, VPA 10/23/16- 30.6; VPA 11/02/16- 38.4 -Individual and group therapy -Psychology consult appreciated- patient has significant cognitive deficits -Disposition planning- pending transition to longterm facility, pending approval from legal guardian Family Contact Family involvement: Family/SO is involved - Outside Agency Office of the Public Guardian, [facility] involvment: Following patient during stay, Information-sharing Agency contact name: Blockmason, Sharon Lin Agency contact number: [phone] Discharge/Continuing Care - Education Needs Education Needs: Family Medication, Family Diagnosis/Disease Process, Family Coping Skills, Family Placement options, Family Community resources, Family Activities of Daily Living, Family Uses of Medical Equipment, Family Health Practices/Safety, Family Personal Hygiene/Grooming, Family Aftercare Safety Plan , Patient Medication, Patient Diagnosis/Disease Process, Patient Coping Skills, Patient Placement options, Patient Community resources, Patient Activities of Daily Living, Patient Uses of Medical Equipment, Patient Health Practices/Safety , Patient Personal Hygiene/Grooming, Patient Aftercare Safety Plan - Discharge Discharge Criteria: Tolerates medication w/o severe side effects, Free of paranoid thoughts, Free of agitation, Normal sleep pattern, Reduction of target symptoms Discharge to:: [facility], Residential Facility - Additional Comments 10/15/16 10:15 Pt's progress and bx discussed in team . Pt's medications reviewed. Pt's medical and social issues discussed. Pt currently on a 1:1 for safety precautions and wandering bxs'. Pt remains confused and disoriented. - Treatment Team Participation Patient/Family/SO Statement: Dementia w/ behavioral disturbance, Psychosis unspecified, Mood Disorder unspecified; patient has improved clinically and is psychiatrically stable for referral for longterm placement. -Medicine consult appreciated -Continue Risperdal M-tab 0.5 mg PO BID -Continue Depakote 125 mg PO BID, VPA 10/23/16- 30.6; VPA 11/02/16- 38.4 -Individual and group therapy -Psychology consult appreciated- patient has significant cognitive deficits -Disposition planning- pending transition to longterm facility, pending approval from legal guardian Discussed with Family/SO: Yes (Tx plan discussed [facility] director of casework services, Sharon Lin via telephone) Was Patient/Family/SO present at Treatment Team Meeting: No Treatment Plan Review - Problem altered thought process Date Initiated: 10/21/16 Time Initiated: 10:16 Progress toward outcomes: unchanged - Discharge / Continuing Care Discharge to:: Residential Facility Behavioral Health Services: Other (Medication management; support group therapy ; individual therapy) Health Needs: Follow up care/test, Doctor appointments, Special equipment, Medications/Rx, Educational
[2016-11-05 06:30] VITALS: BP 136/71; PULSE 82; RESP 18; TEMP 96.4
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
[2016-11-05] MEDS: Divalproex 125 mg Sprinkle Capsule PO SCH (08:32)
[2016-11-05] MEDS: Risperidone M tab 0.5MG PO SCH (08:32)
[2016-11-05] MEDS: Multivitamin With Minerals Tab PO SCH (08:32)
== END 2016-11-05 10:15 | DRG 884 ==
LOC: H.ER 10:56 → H.EROBSV 11:53 → OBSVTOIN 15:24 → H.ERHOLD 15:39 → H.STEP 21:14
PROVIDERS: ADMIT Psychiatry & Neurology Psychiatry; ATTEND Psychiatry & Neurology Psychiatry
DX: F03.91 Unspecified dementia, unspecified severity, with behavioral disturbance (principal); E53.8 Deficiency of other specified B group vitamins; E78.5 Hyperlipidemia, unspecified; F39 Unspecified mood [affective] disorder; F29 Unspecified psychosis not due to a substance or known physiological condition; Z96.641 Presence of right artificial hip joint; Z91.83 Wandering in diseases classified elsewhere; Z75.1 Person awaiting admission to adequate facility elsewhere